=== PATIENT | male | born 1995 | race Caucasian/White ===

== ENCOUNTER 2020-10-10 09:04 | Emergency (ER) | payer SELFPAY ==
[2020-10-10 09:13] VITALS: BMI 27.0
[2020-10-10 11:20] LABS: EPI CELLS 31 /uL (0-25.1); HYALINE CASTS 3 /uL (0-3.1); URINE APPEARANCE CLEAR; URINE BACTERIA 81 /uL (0-1359); URINE BILIRUBIN NEGATIVE (NEGATIVE); URINE COLOR DK YELLOW; URINE GLUCOSE (UA) NEGATIVE (NEGATIVE); URINE KETONE NEGATIVE (NEGATIVE); URINE LEUK ESTERASE TRACE (NEGATIVE); URINE NITRITE NEGATIVE (NEGATIVE); URINE PROTEIN TRACE (NEGATIVE); URINE RBC 485 /uL (0-23.9); URINE WBC 25 /uL (0-25.8)
[2020-10-10] MEDS ORDERED: KETOROLAC TROMETHAMINE 30 MG/1 ML VIAL IVPUSH ONE (12:11)
[2020-10-10] MEDS ORDERED: SODIUM CHLORIDE 1,000 ML IV STA (12:11)
[2020-10-10] MEDS ORDERED: KETOROLAC TROMETHAMINE 30 MG/1 ML VIAL ONE (12:18)
[2020-10-10 12:43] LABS: BASO % 0.3 % (0-2.0); EOS % 0.1 % (0-4.5); HEMATOCRIT 47.7 % (35.4-49); HEMOGLOBIN 16.6 GM/dL (11.7-16.9); MCH 30.1 pg (25.7-33.7); MCHC 34.7 g/dl (32.0-35.9); MEAN CELL VOLUME 86.7 fl (80-96); MEAN PLT VOLUME 8.2 fl (7.5-11.1); MONO % 5.1 % (3.8-10.2); NEUT % 78.5 % (42.8-82.8); PLATELET COUNT 289 K/MM3 (134-434); RDW 13.6 % (11.9-15.9); WHITE BLOOD COUNT 12.6 K/mm3 (4.0-10.0)
[2020-10-10 13:10] LABS: ALBUMIN 4.1 g/dl (3.4-5.0); BLOOD UREA NITROGEN 10.7 mg/dL (7-18)
[2020-10-10 13:14] LABS: BILIRUBIN,TOTAL 0.6 mg/dL (0.2-1)
[2020-10-10 13:15] LABS: TOT PROT 7.7 g/dl (6.4-8.2)
[2020-10-10 14:23] VITALS: BP 128/74; PULSE 79; TEMP 98.1
== END 2020-10-10 14:30 | disposition home or self-care (01) ==
LOC: JER 09:04
PROC: 3E0333Z Introduction of Anti-inflammatory into Peripheral Vein, Percutaneous Approach (ICD-10-PCS; principal; 2020-10-10)
PROC: 3E0337Z Introduction of Electrolytic and Water Balance Substance into Peripheral Vein, Percutaneous Approach (ICD-10-PCS; 2020-10-10)
DX: R10.9 Unspecified abdominal pain (principal)
CPT/HCPCS: 36415; 74176-TC; 80053; 81003; 85025; 87086; 87491; 87591; 99285-25